=== PATIENT | female | born 1980 | race Caucasian/White ===

== ENCOUNTER 2016-09-11 11:44 | Emergency (ER) | payer SELFPAY ==
[2016-09-11 11:50] VITALS: BP 123/73; PULSE 92; RESP 18; TEMP 99.8
[2016-09-11] MEDS ORDERED: DIPH,PERTUS(ACELL)TETVAC-LF 0.5 ML VIAL IM ONE (11:54)
--- NOTE | 2016-09-11 12:07 | ED ---
Wound/Laceration HPI - General Chief Complaint: Wound/Laceration Stated Complaint: LEFT THUMB LAC Time Seen by Provider: 09/11/16 11:51 Source: patient, RN notes reviewed Mode of arrival: wheelchair Limitations: no limitations - History of Present Illness Initial Comments: 36-year-old female presented emergency department with chief complaint of left thumb laceration. She was opening a can and green beans states that cut her thumb. She is unsure when her last tetanus was. Patient denies any decreased range of motion no paresthesias. - Related Data Home Medications Medication Instructions Recorded Confirmed Albuterol Inhaler [Ventolin Hfa 1 - 2 puff INHALATION RT-Q6H PRN 11/19/15 Inhaler] Albuterol Nebulized [Ventolin 2.5 mg INHALATION RT-Q6H PRN 11/19/15 11/19/15 Nebulized] Citalopram Hydrobromide [CeleXA] 10 mg PO DAILY 11/19/15 11/19/15 Ibuprofen [Motrin] 600 mg PO ONCE 11/19/15 11/19/15 lamoTRIgine [LaMICtal] 150 mg PO DAILY 11/19/15 11/19/15 Previous Rx's Medication Instructions Recorded Ibuprofen [Motrin] 600 mg PO Q6HR PRN #20 tab 11/19/15 Allergies Allergy/AdvReac Type Severity Reaction Status Date / Time No Known Allergies Allergy Verified 09/11/16 11:50 Review of Systems ROS Statement: Those systems with pertinent positive or pertinent negative responses have been documented in the HPI. ROS Other: All systems not noted in ROS Statement are negative. Past Medical History Past Medical History: Asthma History of Any Multi-Drug Resistant Organisms: MRSA Date of last positivie culture/infection: 2009 MDRO Source:: incision Past Surgical History: Section, Orthopedic Surgery Additional Past Surgical History / Comment(s): Left hand surgery; D&C Past Psychological History: No Psychological Hx Reported Smoking Status: Current some day smoker Past Alcohol Use History: Occasional Past Drug Use History: None Reported General Exam Limitations: no limitations General appearance: alert, in no apparent distress Respiratory exam: Present: normal lung sounds bilaterally. Absent: respiratory distress, wheezes, rales, rhonchi, stridor Cardiovascular Exam: Present: regular rate, normal rhythm, normal heart sounds. Absent: systolic murmur, diastolic murmur, rubs, gallop, clicks Extremities exam: Present: other (Left thumb there is a one similar laceration no deep tendon involvement patient is full range of motion full-strength of the digit with Refill less than 2 seconds) Course Vital Signs 09/11/16 11:47 Temperature 99.8 F H Pulse Rate 92 Respiratory 18 Rate Blood Pressure 123/73 O2 Sat by Pulse 98 Oximetry Procedures - Laceration Laceration #1 Consent Obtained: verbal consent Indication: laceration Site: hand (Left thumb) Size (cm): 1 Description: linear Depth: simple, single layer Anesthetic Used: lidocaine 1%, without epi Anesthesia Technique: local infiltration Amount (mls): 2 Pre-repair: wound explored, irrigated extensively, deep structures intact Type of Sutures: nylon Size of Sutures: 4-0 Number of Sutures: 2 Technique: simple, interrupted Patient Tolerated Procedure: well, no complications Disposition Clinical Impression: Laceration of left thumb Disposition: HOME SELF-CARE Condition: Stable Instructions: Care For Your Stitches (ED), Laceration (ED) Additional Instructions: Please return to the Emergency Department if symptoms worsen or any other concerns. Have sutures removed in 7 days. Referrals: None,Stated [Primary Care Provider] - 1-2 days Time of Disposition: 12:07
== END 2016-09-11 12:43 | disposition home or self-care (01) ==
LOC: EC 11:44
DX: S61.012A Laceration without foreign body of left thumb without damage to nail, initial encounter (principal); F17.200 Nicotine dependence, unspecified, uncomplicated; Z79.1 Long term (current) use of non-steroidal anti-inflammatories (NSAID); Z79.899 Other long term (current) drug therapy; Z98.890 Other specified postprocedural states; Z23 Encounter for immunization; W45.8XXA Other foreign body or object entering through skin, initial encounter; Y92.69 Other specified industrial and construction area as the place of occurrence of the external cause; Y93.89 Activity, other specified
CPT/HCPCS: 12001; 90471; 90715; 99282